=== PATIENT | female | born 1985 | race Asian ===

== ENCOUNTER 2020-01-25 00:07 | Inpatient (IN) | payer MEDICAID, OTHER ==
[~2020-01-25] VITALS: Ht 154.9 cm; Wt 44.7 kg
[2020-01-25] MEDS ORDERED: LORazepam 2 MG TABLET PO ONE (00:30)
[2020-01-25 00:52] LABS: BASOPHILS % (AUTO) 0.5 % (0.0-2.0); EOSINOPHILS % (AUTO) 3.1 % (1.0-6.0); HEMOGLOBIN 14.1 g/dL (12.0-16.0); LYMPHOCYTES # (AUTO) 2.4 K/uL (1.0-4.8); MEAN CORPUSCULAR HEMOGLOBIN 33.2 pg (26.0-34.0); MEAN CORPUSCULAR HGB CONC 33.7 G/dL (31.0-37.0); MEAN CORPUSCULAR VOLUME 99 fL (80-100); MONOCYTES # (AUTO) 0.3 K/uL (0.1-1.0); MONOCYTES % (AUTO) 3.8 % (2.0-9.0); NEUTROPHILS # (AUTO) 5.9 K/uL (1.8-7.7); NEUTROPHILS % (AUTO) 65.6 % (40.0-70.0); PLATELET COUNT (AUTO) 332 K/uL (150-450); RED BLOOD CELL COUNT(AUTO) 4.26 MIL/uL (4.00-5.20); RED CELL DISTRIBUTION WIDTH 12.7 % (11.5-14.5)
[2020-01-25 01:01] LABS: ANION GAP 9 mmol/L (8-16); CALCIUM, TOTAL 9.3 mg/dL (8.8-10.5); CARBON DIOXIDE 29 mmol/L (22-29); CHLORIDE 101 mmol/L (98-107); CREATININE 0.82 mg/dL (0.60-1.30); GLOMERULAR FILTR. RATE CALC > 60 mL/min (>60); GLUCOSE,RANDOM 106 mg/dL (70-110); POTASSIUM 3.3 mmol/L (3.5-5.1); SODIUM SERUM 139 mmol/L (136-145); UREA NITROGEN, BLOOD 7 mg/dL (7-18)
[2020-01-25 01:12] LABS: ALANINE AMINOTRANSFERASE 22 U/L (12-78); ALBUMIN 3.9 g/dL (3.4-5.0); ALKALINE PHOSPHATASE 58 U/L (46-116); ASPARTATE AMINOTRANSFERASE 12 U/L (15-37); HCG,QUANTITATIVE < 1 mIU/mL (0-6); TOTAL PROTEIN, SERUM 7.3 g/dL (6.4-8.2)
[2020-01-25] MEDS ORDERED: ZOLPIDEM TARTRATE 10 MG TABLET PO PRN (03:15)
[2020-01-25] MEDS: LORazepam 2 MG TABLET PO PRN (16:43)
[2020-01-25] MEDS: OLANZapine 5 MG RAPDIS TABLET PO PRN (16:43)
[2020-01-25 17:04] VITALS: BP 119/87
[2020-01-25] MEDS ORDERED: ONDANSETRON HCL 4 MG TABLET PO PRN (19:45)
[2020-01-25] MEDS ORDERED: MAG HYDROX/AL HYDROX/SIMETH ES 30 ML SUSPENSION UDCUP PO PRN (19:45)
[2020-01-25] MEDS ORDERED: GuaiFENesin/D-METHORPHAN [SUGAR-FREE] 200-20MG/10 ML SYRUP UDCUP PO PRN (19:45)
[2020-01-25] MEDS ORDERED: PETROLATUM,WHITE 28 GM JELLY TP PRN (19:45)
[2020-01-25] MEDS ORDERED: CloNIDine HCL 0.1 MG TABLET PO PRN (19:45)
[2020-01-25] MEDS ORDERED: NICOTINE 14 MG/24 HOUR PATCH TD PRN (19:45)
[2020-01-25] MEDS ORDERED: ACETAMINOPHEN 325 MG TABLET PO PRN (19:45)
[2020-01-25] MEDS ORDERED: IBUPROFEN 400 MG TABLET PO PRN (19:45)
[2020-01-25] MEDS ORDERED: DOCUSATE SODIUM 100 MG CAPSULE PO PRN (19:45)
[2020-01-25] MEDS ORDERED: LOPERAMIDE HCL 2 MG CAPSULE PO PRN (19:45)
[2020-01-25] MEDS ORDERED: ALBUTEROL SULFATE HFA 90 MCG/PUFF 8 GM INHALER IH PRN (19:45)
[2020-01-25] MEDS ORDERED: MAGNESIUM HYDROXIDE SUSPENSION 30 ML UDCUP PO PRN (19:45)
[2020-01-26] MEDS ORDERED: INFLUENZA VIRUS VACCINE QVS 2019-20 (3YR+)/PF 60 MCG/0.5 ML SYRINGE IM ONE (06:45)
[2020-01-26 07:46] LABS: HEMOGLOBIN A1C 5.4 % (3.8-5.6)
[2020-01-26 07:50] LABS: ALANINE AMINOTRANSFERASE 23 U/L (12-78); ALBUMIN 3.5 g/dL (3.4-5.0); ALKALINE PHOSPHATASE 56 U/L (46-116); ANION GAP 11 mmol/L (8-16); ASPARTATE AMINOTRANSFERASE 15 U/L (15-37); BILIRUBIN,TOTAL 0.4 mg/dL (0.1-1.0); CALCIUM, TOTAL 9.1 mg/dL (8.8-10.5); CARBON DIOXIDE 26 mmol/L (22-29); CHLORIDE 106 mmol/L (98-107); CHOL/HDL RATIO 2.7 (3.9-5.7); CHOLESTEROL 158 mg/dL (131-200); CREATININE 0.68 mg/dL (0.60-1.30); GLOMERULAR FILTR. RATE CALC > 60 mL/min (>60); GLUCOSE,RANDOM 90 mg/dL (70-110); HDL CHOLESTEROL 58 mg/dL (40-60); LDL CHOL (CALC.) 82 mg/dL (0-130); POTASSIUM 3.6 mmol/L (3.5-5.1); SODIUM SERUM 143 mmol/L (136-145); TOTAL PROTEIN, SERUM 6.6 g/dL (6.4-8.2); TRIGLYCERIDES 90 mg/dL (15-150); UREA NITROGEN, BLOOD 10 mg/dL (7-18)
[2020-01-26] MEDS: HALOPERIDOL 5 MG TABLET PO SCH ×3 (08:39→17:25)
[2020-01-26] MEDS: OLANZapine 5 MG RAPDIS TABLET PO PRN (08:39)
[2020-01-26] MEDS ORDERED: LORazepam 2 MG/ML VIAL ONE (08:57)
[2020-01-26] MEDS ORDERED: DiphenhydrAMINE HCL 50 MG/ML VIAL ONE (08:58)
[2020-01-26] MEDS ORDERED: HALOPERIDOL LACTATE 5 MG/ML VIAL ONE (08:58)
[2020-01-26] MEDS ORDERED: HALOPERIDOL LACTATE 5 MG/ML VIAL IM ONE (09:00)
[2020-01-26] MEDS ORDERED: DiphenhydrAMINE HCL 50 MG/ML VIAL IM ONE (09:00)
[2020-01-26] MEDS ORDERED: LORazepam 2 MG/ML VIAL IM ONE (09:00)
[2020-01-26 16:10] VITALS: BP 108/73
[2020-01-26] MEDS: LORazepam 2 MG TABLET PO PRN (17:25)
[2020-01-27] MEDS: HALOPERIDOL 5 MG TABLET PO SCH ×2 (08:11→16:53)
[2020-01-27] MEDS: LORazepam 2 MG TABLET PO PRN ×2 (08:11→16:52)
[2020-01-27 16:23] VITALS: BP 118/88
[2020-01-27 16:24] VITALS: BP 118/78
[2020-01-28] MEDS: HALOPERIDOL 5 MG TABLET PO SCH ×2 (08:18→16:54)
[2020-01-28] MEDS: LORazepam 2 MG TABLET PO PRN (08:18)
[2020-01-28 16:05] VITALS: BP 133/88
[2020-01-28 16:06] VITALS: BP 102/71
[2020-01-29] MEDS: HALOPERIDOL 5 MG TABLET PO SCH (08:20)
[2020-01-29] MEDS: LORazepam 2 MG TABLET PO PRN (08:23)
[2020-01-29] MEDS ORDERED: PROMETHAZINE HCL 25 MG TABLET PO PRN (15:45)
[2020-01-29] MEDS ORDERED: HydrOXYzine PAMOATE 50 MG CAPSULE PO PRN (15:45)
[2020-01-29] MEDS ORDERED: HALOPERIDOL 5 MG TABLET PO PRN (15:45)
[2020-01-29] MEDS ORDERED: GuaiFENesin/D-METHORPHAN [SUGAR-FREE] 200-20MG/10 ML SYRUP UDCUP PO PRN (15:45)
[2020-01-29] MEDS ORDERED: TUBERCULIN, PURIFIED PROTEIN DERIVATIVE 5 TU/0.1 ML SYRINGE ID ONE (15:45)
[2020-01-29] MEDS ORDERED: HALOPERIDOL 5 MG TABLET ONE (15:53)
[2020-01-29] MEDS: THIAMINE HCL 100 MG TABLET PO SCH (16:17)
[2020-01-29] MEDS: HALOPERIDOL 10 MG TABLET PO SCH (16:19)
[2020-01-29 16:23] VITALS: BP 112/76
[2020-01-29] MEDS: DIVALPROEX SODIUM 250 MG ER TABLET PO SCH (20:07)
[2020-01-30] MEDS: MULTIVITAMINS WITH MINERALS, THERAPEUTIC TABLET PO SCH (08:08)
[2020-01-30] MEDS: HALOPERIDOL 10 MG TABLET PO SCH ×2 (08:08→16:18)
[2020-01-30] MEDS: NALTREXONE HCL 50 MG TABLET PO SCH (08:08)
[2020-01-30] MEDS: FOLIC ACID 1 MG TABLET PO SCH (08:08)
[2020-01-30 08:09] VITALS: BP 143/78
[2020-01-30] MEDS: THIAMINE HCL 100 MG TABLET PO SCH ×2 (08:09→16:18)
[2020-01-30] MEDS: LORazepam 2 MG TABLET PO PRN ×2 (11:45→17:49)
[2020-01-30 16:25] VITALS: BP 151/76
[2020-01-30] MEDS: DIVALPROEX SODIUM 250 MG ER TABLET PO SCH (20:12)
[2020-01-31] MEDS: LORazepam 2 MG TABLET PO PRN (08:26)
[2020-01-31] MEDS: THIAMINE HCL 100 MG TABLET PO SCH ×2 (09:12→16:28)
[2020-01-31] MEDS: FOLIC ACID 1 MG TABLET PO SCH (09:12)
[2020-01-31] MEDS: NALTREXONE HCL 50 MG TABLET PO SCH (09:12)
[2020-01-31] MEDS: HALOPERIDOL 10 MG TABLET PO SCH ×2 (09:12→16:28)
[2020-01-31] MEDS: MULTIVITAMINS WITH MINERALS, THERAPEUTIC TABLET PO SCH (09:12)
[2020-01-31 17:11] VITALS: BP 98/55
[2020-01-31] MEDS: DIVALPROEX SODIUM 250 MG ER TABLET PO SCH (20:03)
[2020-02-01] MEDS: FOLIC ACID 1 MG TABLET PO SCH (08:00)
[2020-02-01] MEDS: THIAMINE HCL 100 MG TABLET PO SCH ×2 (08:00→16:29)
[2020-02-01] MEDS: NALTREXONE HCL 50 MG TABLET PO SCH (08:00)
[2020-02-01] MEDS: HALOPERIDOL 10 MG TABLET PO SCH ×2 (08:00→16:29)
[2020-02-01] MEDS: MULTIVITAMINS WITH MINERALS, THERAPEUTIC TABLET PO SCH (08:00)
[2020-02-01] MEDS: LORazepam 2 MG TABLET PO PRN (08:00)
[2020-02-01 09:34] VITALS: BP 124/84
[2020-02-01] MEDS ORDERED: NALT50TA PO (16:53)
[2020-02-01] MEDS ORDERED: HALO10 PO (16:53)
[2020-02-01] MEDS ORDERED: DIVA250T45 PO (16:53)
[2020-02-01 16:59] VITALS: BP 115/74
[2020-02-01] MEDS: DIVALPROEX SODIUM 250 MG ER TABLET PO SCH (20:17)
[2020-02-02 08:00] VITALS: BP_SYST 121; BP_SYST 130; BP_DIAS 71; BP_DIAS 83
[2020-02-02] MEDS: FOLIC ACID 1 MG TABLET PO SCH (08:57)
[2020-02-02] MEDS: THIAMINE HCL 100 MG TABLET PO SCH ×2 (08:57→16:03)
[2020-02-02] MEDS: HALOPERIDOL 10 MG TABLET PO SCH ×2 (08:57→16:03)
[2020-02-02] MEDS: NALTREXONE HCL 50 MG TABLET PO SCH (08:57)
[2020-02-02] MEDS: MULTIVITAMINS WITH MINERALS, THERAPEUTIC TABLET PO SCH (08:59)
[2020-02-02] MEDS: LORazepam 2 MG TABLET PO PRN (09:04)
[2020-02-02] MEDS ORDERED: MULT-723 PO (12:15)
[2020-02-02] MEDS ORDERED: THIA100T75 PO (12:15)
[2020-02-02] MEDS ORDERED: FOLI1 PO (12:15)
== END 2020-02-02 16:15 | disposition home or self-care (01) | DRG 885 ==
LOC: EMS 00:07 → 3EC 05:00
PROVIDERS: ADMIT Psychiatry & Neurology Psychiatry; ATTEND Psychiatry & Neurology Psychiatry
DX: F25.0 Schizoaffective disorder, bipolar type (principal); R45.851 Suicidal ideations; F15.20 Other stimulant dependence, uncomplicated; E87.6 Hypokalemia; F10.10 Alcohol abuse, uncomplicated; Z91.19 Patient's noncompliance with other medical treatment and regimen; Z28.21 Immunization not carried out because of patient refusal; Z71.51 Drug abuse counseling and surveillance of drug abuser; Z71.41 Alcohol abuse counseling and surveillance of alcoholic
CPT/HCPCS: 80173; 83036; 93005; G0480; J1200; J1630; J2060

== ENCOUNTER 2020-03-24 09:24 | Inpatient (IN) | payer MEDICAID, OTHER ==
[~2020-03-24] VITALS: Ht 160 cm; Wt 53.8 kg
[~2020-03-24 09:24] MED LIST: DIVA250T45 PO; FOLI-130 PO; HALO10 PO; MULT-723 PO; NALT50TA PO; THIA100T80 PO
[2020-03-24] MEDS ORDERED: DiphenhydrAMINE HCL 50 MG/ML VIAL ONE (10:45)
[2020-03-24] MEDS ORDERED: DiphenhydrAMINE HCL 50 MG/ML VIAL IM ONE (10:45)
[2020-03-24] MEDS ORDERED: HALOPERIDOL LACTATE 5 MG/ML VIAL IM ONE (10:45)
[2020-03-24] MEDS ORDERED: HALOPERIDOL LACTATE 5 MG/ML VIAL ONE (10:45)
[2020-03-24] MEDS ORDERED: LORazepam 2 MG/ML VIAL IM ONE (10:45)
[2020-03-24] MEDS ORDERED: LORazepam 2 MG/ML VIAL ONE (10:45)
[2020-03-24] MEDS ORDERED: LORazepam 2 MG TABLET PO PRN (14:30)
[2020-03-24] MEDS ORDERED: HALOPERIDOL 5 MG TABLET PO PRN (14:30)
[2020-03-25 05:19] VITALS: BP 126/71
[2020-03-25 08:47] VITALS: BP 110/69
[2020-03-25] MEDS: HALOPERIDOL 10 MG TABLET PO SCH ×2 (09:00→16:29)
[2020-03-25] MEDS ORDERED: LOPERAMIDE HCL 2 MG CAPSULE PO PRN (10:00)
[2020-03-25] MEDS ORDERED: IBUPROFEN 400 MG TABLET PO PRN (10:00)
[2020-03-25] MEDS ORDERED: NICOTINE 14 MG/24 HOUR PATCH TD PRN (10:00)
[2020-03-25] MEDS ORDERED: MAGNESIUM HYDROXIDE SUSPENSION 30 ML UDCUP PO PRN (10:00)
[2020-03-25] MEDS ORDERED: DOCUSATE SODIUM 100 MG CAPSULE PO PRN (10:00)
[2020-03-25] MEDS ORDERED: PETROLATUM,WHITE 28 GM JELLY TP PRN (10:00)
[2020-03-25] MEDS ORDERED: CloNIDine HCL 0.1 MG TABLET PO PRN (10:00)
[2020-03-25] MEDS ORDERED: GuaiFENesin/D-METHORPHAN [SUGAR-FREE] 200-20MG/10 ML SYRUP UDCUP PO PRN (10:00)
[2020-03-25] MEDS ORDERED: MAG HYDROX/AL HYDROX/SIMETH ES 30 ML SUSPENSION UDCUP PO PRN (10:00)
[2020-03-25] MEDS ORDERED: ALBUTEROL SULFATE HFA 90 MCG/PUFF 8 GM INHALER IH PRN (10:00)
[2020-03-25] MEDS ORDERED: ONDANSETRON HCL 4 MG TABLET PO PRN (10:00)
[2020-03-25] MEDS ORDERED: ACETAMINOPHEN 325 MG TABLET PO PRN (10:00)
[2020-03-25 16:22] VITALS: BP 116/79
[2020-03-25] MEDS: THIAMINE 100 MG TABLET PO SCH (16:29)
[2020-03-25] MEDS: DIVALPROEX SODIUM 250 MG ER TABLET PO SCH (20:31)
[2020-03-26 08:27] VITALS: BP 119/82
[2020-03-26] MEDS: FOLIC ACID 1 MG TABLET PO SCH (08:49)
[2020-03-26] MEDS: MULTIVITAMINS WITH MINERALS, THERAPEUTIC TABLET PO SCH (08:49)
[2020-03-26] MEDS: THIAMINE 100 MG TABLET PO SCH ×2 (08:49→17:48)
[2020-03-26] MEDS: HALOPERIDOL 10 MG TABLET PO SCH ×2 (08:49→17:48)
[2020-03-26 16:30] VITALS: BP 127/75
[2020-03-26] MEDS: DIVALPROEX SODIUM 250 MG ER TABLET PO SCH (20:05)
[2020-03-26] MEDS: ZOLPIDEM TARTRATE 10 MG TABLET PO PRN (20:05)
[2020-03-27 06:11] VITALS: BP 121/74
[2020-03-27] MEDS: FOLIC ACID 1 MG TABLET PO SCH (08:24)
[2020-03-27] MEDS: MULTIVITAMINS WITH MINERALS, THERAPEUTIC TABLET PO SCH (08:26)
[2020-03-27] MEDS: HALOPERIDOL 10 MG TABLET PO SCH ×2 (08:26→16:13)
[2020-03-27] MEDS: THIAMINE 100 MG TABLET PO SCH ×2 (08:26→16:13)
[2020-03-27 16:12] VITALS: BP 126/71
[2020-03-27] MEDS: DIVALPROEX SODIUM 250 MG ER TABLET PO SCH (21:04)
[2020-03-28 02:11] VITALS: BP 72/17
[2020-03-28 08:17] VITALS: BP 119/64
[2020-03-28 08:30] LABS: BASOPHILS % (AUTO) 0.6 % (0.0-2.0); EOSINOPHILS % (AUTO) 5.2 % (1.0-6.0); HEMATOCRIT 40.1 % (36-46); HEMOGLOBIN 13.3 g/dL (12.0-16.0); MEAN CORPUSCULAR HEMOGLOBIN 32.5 pg (26.0-34.0); MEAN CORPUSCULAR HGB CONC 33.3 G/dL (31.0-37.0); MEAN CORPUSCULAR VOLUME 98 fL (80-100); MONOCYTES # (AUTO) 0.3 K/uL (0.1-1.0); MONOCYTES % (AUTO) 4.3 % (2.0-9.0); NEUTROPHILS # (AUTO) 2.5 K/uL (1.8-7.7); NEUTROPHILS % (AUTO) 40.9 % (40.0-70.0); PLATELET COUNT (AUTO) 317 K/uL (150-450); RED BLOOD CELL COUNT(AUTO) 4.11 MIL/uL (4.00-5.20); RED CELL DISTRIBUTION WIDTH 12.3 % (11.5-14.5)
[2020-03-28 09:12] LABS: ALANINE AMINOTRANSFERASE 24 U/L (12-78); ALBUMIN 3.6 g/dL (3.4-5.0); ALKALINE PHOSPHATASE 51 U/L (46-116); ANION GAP 10 mmol/L (8-16); ASPARTATE AMINOTRANSFERASE 17 U/L (15-37); BILIRUBIN,TOTAL 0.4 mg/dL (0.1-1.0); CALCIUM, TOTAL 8.9 mg/dL (8.8-10.5); CARBON DIOXIDE 29 mmol/L (22-29); CHLORIDE 103 mmol/L (98-107); CHOL/HDL RATIO 3.7 (3.9-5.7); CHOLESTEROL 178 mg/dL (131-200); CREATININE 0.72 mg/dL (0.60-1.30); GLOMERULAR FILTR. RATE CALC > 60 mL/min (>60); GLUCOSE,RANDOM 83 mg/dL (70-110); HCG,QUANTITATIVE < 1 mIU/mL (0-6); HDL CHOLESTEROL 48 mg/dL (40-60); LDL CHOL (CALC.) 121 mg/dL (0-130); POTASSIUM 3.6 mmol/L (3.5-5.1); SODIUM SERUM 142 mmol/L (136-145); TOTAL PROTEIN, SERUM 6.7 g/dL (6.4-8.2); TRIGLYCERIDES 47 mg/dL (15-150); UREA NITROGEN, BLOOD 6 mg/dL (7-18)
[2020-03-28] MEDS: FOLIC ACID 1 MG TABLET PO SCH (09:25)
[2020-03-28] MEDS: THIAMINE 100 MG TABLET PO SCH ×2 (09:25→16:43)
[2020-03-28] MEDS: HALOPERIDOL 10 MG TABLET PO SCH ×2 (09:26→16:43)
[2020-03-28] MEDS: MULTIVITAMINS WITH MINERALS, THERAPEUTIC TABLET PO SCH (09:26)
[2020-03-28 09:47] LABS: HEMOGLOBIN A1C 5.4 % (3.8-5.6)
[2020-03-28 16:20] VITALS: BP 114/77
[2020-03-28] MEDS: DIVALPROEX SODIUM 250 MG ER TABLET PO SCH (20:29)
[2020-03-28] MEDS: ZOLPIDEM TARTRATE 10 MG TABLET PO PRN (20:32)
[2020-03-29 01:50] VITALS: BP 102/65
[2020-03-29] MEDS: FOLIC ACID 1 MG TABLET PO SCH (09:26)
[2020-03-29] MEDS: HALOPERIDOL 10 MG TABLET PO SCH ×2 (09:26→16:27)
[2020-03-29] MEDS: MULTIVITAMINS WITH MINERALS, THERAPEUTIC TABLET PO SCH (09:26)
[2020-03-29] MEDS: THIAMINE 100 MG TABLET PO SCH ×2 (09:26→16:32)
[2020-03-29 16:20] VITALS: BP 105/63
[2020-03-29] MEDS: DIVALPROEX SODIUM 250 MG ER TABLET PO SCH (20:28)
[2020-03-30 04:49] VITALS: BP 100/68
[2020-03-30 08:11] VITALS: BP 119/75
[2020-03-30] MEDS: FOLIC ACID 1 MG TABLET PO SCH (09:12)
[2020-03-30] MEDS: THIAMINE 100 MG TABLET PO SCH ×2 (09:12→17:03)
[2020-03-30] MEDS: MULTIVITAMINS WITH MINERALS, THERAPEUTIC TABLET PO SCH (09:12)
[2020-03-30] MEDS: HALOPERIDOL 10 MG TABLET PO SCH ×2 (09:13→17:03)
[2020-03-30 16:05] VITALS: BP 108/74
[2020-03-30] MEDS: ZOLPIDEM TARTRATE 10 MG TABLET PO PRN (20:43)
[2020-03-30] MEDS: DIVALPROEX SODIUM 250 MG ER TABLET PO SCH (20:43)
[2020-03-31 06:39] VITALS: BP 122/80
[2020-03-31] MEDS: FOLIC ACID 1 MG TABLET PO SCH (08:26)
[2020-03-31] MEDS: MULTIVITAMINS WITH MINERALS, THERAPEUTIC TABLET PO SCH (08:26)
[2020-03-31] MEDS: THIAMINE 100 MG TABLET PO SCH ×2 (08:26→17:26)
[2020-03-31] MEDS: HALOPERIDOL 10 MG TABLET PO SCH ×2 (08:26→17:26)
[2020-03-31 16:06] VITALS: BP 110/69
[2020-03-31] MEDS: ZOLPIDEM TARTRATE 10 MG TABLET PO PRN (20:32)
[2020-03-31] MEDS: DIVALPROEX SODIUM 250 MG ER TABLET PO SCH (20:32)
[2020-04-01 05:49] VITALS: BP 115/67
[2020-04-01] MEDS: MULTIVITAMINS WITH MINERALS, THERAPEUTIC TABLET PO SCH (08:16)
[2020-04-01] MEDS: FOLIC ACID 1 MG TABLET PO SCH (08:16)
[2020-04-01] MEDS: THIAMINE 100 MG TABLET PO SCH (08:16)
[2020-04-01] MEDS: HALOPERIDOL 10 MG TABLET PO SCH (08:16)
[2020-04-01] MEDS ORDERED: DIVA250T45 PO (08:56)
[2020-04-01] MEDS ORDERED: HALO10 PO (08:56)
== END 2020-04-01 13:15 | disposition home or self-care (01) | DRG 750 ==
LOC: EMS 09:25 → B3A 15:10
DX: F25.0 Schizoaffective disorder, bipolar type (principal); F10.10 Alcohol abuse, uncomplicated; F15.10 Other stimulant abuse, uncomplicated; Z91.5 Personal history of self-harm; F41.9 Anxiety disorder, unspecified; F32.9 Major depressive disorder, single episode, unspecified; F19.10 Other psychoactive substance abuse, uncomplicated; G44.209 Tension-type headache, unspecified, not intractable; F17.200 Nicotine dependence, unspecified, uncomplicated; Y90.9 Presence of alcohol in blood, level not specified
CPT/HCPCS: 83036; 84443; G0480; J1200; J1630; J2060

== ENCOUNTER 2020-07-31 17:03 | Inpatient (IN) | payer MEDICAID, OTHER ==
[~2020-07-31] VITALS: Ht 157.5 cm; Wt 46.0 kg
[~2020-07-31 17:03] MED LIST changes: +DIVA-85 PO; -DIVA250T45 PO; -FOLI-130 PO; -MULT-723 PO; -NALT50TA PO; -THIA100T80 PO
[2020-07-31 18:41] LABS: EOSINOPHILS % (AUTO) 2.7 % (1.0-6.0); HEMATOCRIT 40.8 % (36-46); HEMOGLOBIN 13.7 g/dL (12.0-16.0); LYMPHOCYTES # (AUTO) 3.4 K/uL (1.0-4.8); LYMPHOCYTES % (AUTO) 34.1 % (22.0-44.0); MEAN CORPUSCULAR HEMOGLOBIN 32.4 pg (26.0-34.0); MEAN CORPUSCULAR HGB CONC 33.6 G/dL (31.0-37.0); MEAN CORPUSCULAR VOLUME 96 fL (80-100); MONOCYTES # (AUTO) 0.6 K/uL (0.1-1.0); MONOCYTES % (AUTO) 6.1 % (2.0-9.0); NEUTROPHILS # (AUTO) 5.6 K/uL (1.8-7.7); NEUTROPHILS % (AUTO) 56.1 % (40.0-70.0); PLATELET COUNT (AUTO) 351 K/uL (150-450); RED BLOOD CELL COUNT(AUTO) 4.23 MIL/uL (4.00-5.20); RED CELL DISTRIBUTION WIDTH 12.6 % (11.5-14.5)
[2020-07-31 18:52] LABS: ANION GAP 11 mmol/L (8-16); CALCIUM, TOTAL 9.4 mg/dL (8.8-10.5); CARBON DIOXIDE 27 mmol/L (22-29); CHLORIDE 102 mmol/L (98-107); CREATININE 1.03 mg/dL (0.60-1.30); GLOMERULAR FILTR. RATE CALC > 60 mL/min (>60); GLUCOSE,RANDOM 104 mg/dL (70-110); POTASSIUM 3.4 mmol/L (3.5-5.1); SODIUM SERUM 140 mmol/L (136-145); UREA NITROGEN, BLOOD 13 mg/dL (7-18)
[2020-07-31 19:07] LABS: ALANINE AMINOTRANSFERASE 12 U/L (12-78); ALBUMIN 4.3 g/dL (3.4-5.0); ALKALINE PHOSPHATASE 60 U/L (46-116); ASPARTATE AMINOTRANSFERASE 10 U/L (15-37); BILIRUBIN,TOTAL 0.5 mg/dL (0.1-1.0); HCG,QUANTITATIVE 1 mIU/mL (0-6); TOTAL PROTEIN, SERUM 7.6 g/dL (6.4-8.2)
[2020-07-31] MEDS ORDERED: HALOPERIDOL LACTATE 5 MG/ML VIAL IM ONE (19:15)
[2020-07-31] MEDS ORDERED: DiphenhydrAMINE HCL 50 MG/ML VIAL IM ONE (19:15)
[2020-07-31] MEDS ORDERED: LORazepam 2 MG/ML VIAL IM ONE (19:15)
[2020-07-31] MEDS ORDERED: LORazepam 2 MG TABLET ONE (19:27)
[2020-07-31] MEDS ORDERED: DiphenhydrAMINE HCL 50 MG CAPSULE ONE (19:27)
[2020-07-31] MEDS ORDERED: HALOPERIDOL 5 MG TABLET ONE (19:27)
[2020-07-31 19:40] LABS: COVID AG,FIA SOURCE NASOPHARYNGEAL
[2020-07-31] MEDS ORDERED: LORazepam 2 MG TABLET PO ONE (19:45)
[2020-07-31] MEDS ORDERED: DiphenhydrAMINE HCL 25 MG CAPSULE PO ONE (19:45)
[2020-07-31] MEDS ORDERED: HALOPERIDOL 5 MG TABLET PO ONE (19:45)
[2020-07-31] MEDS ORDERED: ZOLPIDEM TARTRATE 10 MG TABLET PO PRN (20:00)
[2020-07-31] MEDS ORDERED: HALOPERIDOL 5 MG TABLET PO PRN (20:00)
[2020-07-31] MEDS ORDERED: LORazepam 2 MG TABLET PO PRN (20:00)
[2020-08-01] MEDS ORDERED: INFLUENZA VIRUS VACCINE QVS 2020-21 (6MO+)/PF 60 MCG/0.5 ML SYRINGE IM ONE (01:45)
[2020-08-01 02:00] VITALS: BP 109/70
[2020-08-01] MEDS ORDERED: ALBUTEROL SULFATE HFA 90 MCG/PUFF 8 GM INHALER IH PRN (08:30)
[2020-08-01] MEDS ORDERED: DOCUSATE SODIUM 100 MG CAPSULE PO PRN (08:30)
[2020-08-01] MEDS ORDERED: LOPERAMIDE HCL 2 MG CAPSULE PO PRN (08:30)
[2020-08-01] MEDS ORDERED: PETROLATUM,WHITE 28 GM JELLY TP PRN (08:30)
[2020-08-01] MEDS ORDERED: IBUPROFEN 600 MG TABLET PO PRN (08:30)
[2020-08-01] MEDS ORDERED: ONDANSETRON HCL 4 MG TABLET PO PRN (08:30)
[2020-08-01] MEDS ORDERED: BENZOCAINE/MENTHOL LOZENGE PO PRN (08:30)
[2020-08-01] MEDS ORDERED: BACITRACIN 28 GM OINTMENT TP PRN (08:30)
[2020-08-01] MEDS ORDERED: OMEPRAZOLE 20 MG CAPSULE PO PRN (08:30)
[2020-08-01] MEDS ORDERED: CloNIDine HCL 0.1 MG TABLET PO PRN (08:30)
[2020-08-01] MEDS ORDERED: ACETAMINOPHEN 325 MG TABLET PO PRN (08:30)
[2020-08-01] MEDS ORDERED: MAGNESIUM HYDROXIDE SUSPENSION 30 ML UDCUP PO PRN (08:30)
[2020-08-01] MEDS ORDERED: MAG HYDROX/AL HYDROX/SIMETH ES 30 ML SUSPENSION UDCUP PO PRN (08:30)
[2020-08-01] MEDS: POTASSIUM CHLORIDE 20 MEQ ER TABLET PO ONE (09:53)
[2020-08-01 16:09] VITALS: BP 109/73
[2020-08-02 01:39] VITALS: BP 102/70
[2020-08-02] MEDS: POTASSIUM CHLORIDE 20 MEQ ER TABLET PO ONE (10:00)
[2020-08-02] MEDS ORDERED: HALOPERIDOL LACTATE 5 MG/ML VIAL ONE (15:44)
[2020-08-02] MEDS ORDERED: DiphenhydrAMINE HCL 50 MG/ML VIAL ONE (15:44)
[2020-08-02] MEDS ORDERED: LORazepam 2 MG/ML VIAL ONE (15:44)
[2020-08-02] MEDS ORDERED: LORazepam 2 MG/ML VIAL IM ONE (16:15)
[2020-08-02] MEDS ORDERED: DiphenhydrAMINE HCL 50 MG/ML VIAL IM ONE (16:15)
[2020-08-02] MEDS ORDERED: HALOPERIDOL LACTATE 5 MG/ML VIAL IM ONE (16:15)
[2020-08-02] MEDS: HALOPERIDOL 10 MG TABLET PO SCH (17:00)
[2020-08-02 17:38] VITALS: BP 120/87
[2020-08-02] MEDS: DIVALPROEX SODIUM 250 MG ER TABLET PO SCH (21:00)
[2020-08-03 05:09] VITALS: BP 122/75
[2020-08-03] MEDS: HALOPERIDOL 10 MG TABLET PO SCH ×2 (08:56→17:15)
[2020-08-03 10:41] VITALS: BP 114/56
[2020-08-03 16:21] VITALS: BP 104/74
[2020-08-03] MEDS: DIVALPROEX SODIUM 250 MG ER TABLET PO SCH (20:48)
[2020-08-04 04:45] VITALS: BP 123/78
[2020-08-04] MEDS: HALOPERIDOL 10 MG TABLET PO SCH ×2 (10:05→16:20)
[2020-08-04 17:42] VITALS: BP 98/69
[2020-08-04] MEDS: DIVALPROEX SODIUM 250 MG ER TABLET PO SCH (20:02)
[2020-08-05 02:28] VITALS: BP 110/70
[2020-08-05 08:09] LABS: CHOL/HDL RATIO 3.9 (3.9-5.7); POTASSIUM 3.7 mmol/L (3.5-5.1)
[2020-08-05] MEDS: HALOPERIDOL 10 MG TABLET PO SCH ×2 (08:12→16:48)
[2020-08-05 08:14] VITALS: BP 113/69
[2020-08-05 16:15] VITALS: BP 120/62
[2020-08-05] MEDS: DIVALPROEX SODIUM 250 MG ER TABLET PO SCH (20:10)
[2020-08-06 04:01] VITALS: BP 116/71
[2020-08-06 08:49] VITALS: BP 116/74
[2020-08-06] MEDS: HALOPERIDOL 10 MG TABLET PO SCH ×2 (08:58→16:45)
[2020-08-06 16:36] VITALS: BP 124/73
[2020-08-06] MEDS: DIVALPROEX SODIUM 250 MG ER TABLET PO SCH (21:19)
[2020-08-07 04:21] VITALS: BP 120/66
[2020-08-07] MEDS: HALOPERIDOL 10 MG TABLET PO SCH (09:17)
[2020-08-07 09:25] VITALS: BP 122/65
== END 2020-08-07 13:30 | disposition home or self-care (01) | DRG 750 ==
LOC: EMS 17:03 → B3A 19:50
PROVIDERS: ADMIT Psychiatry & Neurology Psychiatry; ATTEND Psychiatry & Neurology Psychiatry
DX: F20.9 Schizophrenia, unspecified (principal); K59.00 Constipation, unspecified; F41.9 Anxiety disorder, unspecified; G47.00 Insomnia, unspecified; E87.6 Hypokalemia; F10.10 Alcohol abuse, uncomplicated; F17.210 Nicotine dependence, cigarettes, uncomplicated; Z20.828 Contact with and (suspected) exposure to other viral communicable diseases; Z72.89 Other problems related to lifestyle; Z79.899 Other long term (current) drug therapy
CPT/HCPCS: 84132; 87426; 99291; G0480; J1200; J1630; J2060

== ENCOUNTER 2020-11-16 21:16 | Emergency (ER) | payer MEDICAID, OTHER | END 2020-11-17 | disposition left against medical advice (07) | LOC: EMS 21:17 | DX: R45.851 Suicidal ideations (principal); Z53.21 Procedure and treatment not carried out due to patient leaving prior to being seen by health care provider ==